=== PATIENT | male | born 1990 | race Caucasian/White ===

== ENCOUNTER 2023-07-11 08:00 | Outpatient (RCR) | payer OTHER, SELFPAY | END 2023-10-09 15:33 | disposition home or self-care (01) | PROVIDERS: PCP Family Medicine; Visit Provider Nurse Practitioner | DX: M54.50 Low back pain, unspecified (principal); M54.16 Radiculopathy, lumbar region; M62.81 Muscle weakness (generalized); M47.897 Other spondylosis, lumbosacral region; Z51.89 Encounter for other specified aftercare | CPT/HCPCS: 97110; 97112; 97161 ==

== ENCOUNTER 2023-10-18 14:56 | Outpatient (CLI) | payer BC, SELFPAY | END 2023-10-18 14:57 | disposition home or self-care (01) | PROVIDERS: PCP Family Medicine; Visit Provider Emergency Medicine | DX: R19.7 Diarrhea, unspecified (principal) | CPT/HCPCS: 80053; 84443; 86140; 86258; 86364 ==

== ENCOUNTER 2025-04-17 08:59 | Outpatient (CLI) | payer BC, SELFPAY | END 2025-04-17 09:00 | disposition home or self-care (01) | LOC: LKVREF 09:00 | PROVIDERS: PCP Family Medicine; Visit Provider Family Medicine | DX: Z13.6 Encounter for screening for cardiovascular disorders (principal) | CPT/HCPCS: 80061 ==